=== PATIENT | female | born 1970 | race Caucasian/White ===

== ENCOUNTER → 2017-12-31 | Outpatient (CLI) | payer OTHER ==
[~2017-12-31] MED LIST: MACROBID100 M1 PO; MULTIPLE VITAMI1 TAB PO; NORETHINDRONE AC5 MG PO; PERCOCET 325 MG1 TA5 PO; ZOFRAN ODT4 MG SL
== END | disposition home or self-care (01) ==
LOC: RAD 13:34
DX: R05 Cough (principal); R06.02 Shortness of breath; R09.89 Other specified symptoms and signs involving the circulatory and respiratory systems

== ENCOUNTER 2018-08-01 18:16 | Emergency (ER) | payer OTHER ==
[~2018-08-01] VITALS: Ht 165.1 cm; Wt 72.6 kg
[2018-08-01 18:59] LABS: BILIRUBIN NEGATIVE (NEGATIVE); BLOOD TRACE-INTACT (NEGATIVE); CLARITY CLEAR (CLEAR); COLOR YELLOW (YELLOW); GLUCOSE NEGATIVE (NEGATIVE); KETONE NEGATIVE (NEGATIVE); LEUKO ESTERASE NEGATIVE (NEGATIVE); NITRITE NEGATIVE (NEGATIVE); UROBILINOGEN 0.2 E.U./dl (0.2-1.0)
[2018-08-01 19:07] LABS: BASO # 0.1 10*3/uL (0.0-0.1); BASO % 1.4 % (0.0-1.0); EOS # 0.1 10*3/uL (0.0-0.4); EOS % 1.4 % (1.0-4.0); HEMATOCRIT 41.4 % (37.0-47.0); HEMOGLOBIN 14.4 g/dl (12.0-16.0); LYMPH # 2.2 10*3/uL (1.3-4.4); LYMPH % 43.2 % (27.0-41.0); MEAN CELL VOLUME 86.1 fl (81.0-99.0); MEAN CORPUSCULAR HGB 29.9 pg (27.0-31.0); MEAN CORPUSCULAR HGB CONC 34.8 g/dl (33.0-37.0); MEAN PLATELET VOLUME 10.5 fl (9.6-12.3); MONO # 0.4 10*3/uL (0.1-1.0); MONO % 7.9 % (3.0-9.0); NEUT # 2.3 10*3/uL (2.3-7.9); NEUT % 45.9 % (47.0-73.0); PLATELET COUNT AUTOMATED 249 10*3/uL (130-400); RED BLOOD COUNT 4.81 10*6/uL (4.10-5.10); RED CELL DISTRI WIDTH 12.1 % (0-14.5); WHITE BLOOD COUNT 5.1 10*3/uL (4.8-10.8)
[2018-08-01 19:18] LABS: BACTERIA 1+; RBC 16-20 rbc/hpf (0-2)
[2018-08-01 19:24] LABS: ALBUMIN 3.6 gm/dl (3.1-4.5); ALKALINE PHOSPHATASE 50 U/L (45-117); BUN 21 mg/dl (7-24); CHLORIDE 108 mmol/L (98-107); CREATININE 0.83 mg/dL (0.55-1.02); POTASSIUM 4.1 mmol/L (3.5-5.1); SGOT/AST 16 IU/L (3-35); SGPT/ALT 22 U/L (12-78); SODIUM 143 mmol/L (136-145)
== END 2018-08-01 20:01 | disposition home or self-care (01) ==
LOC: ED 18:16
PROVIDERS: Nurse Practitioner Family
DX: N94.6 Dysmenorrhea, unspecified (principal); Z79.899 Other long term (current) drug therapy; Z79.2 Long term (current) use of antibiotics

== ENCOUNTER → 2018-08-05 | Outpatient (CLI) | payer OTHER | END | disposition home or self-care (01) | LOC: US 16:00 | DX: R10.31 Right lower quadrant pain (principal); R10.2 Pelvic and perineal pain ==

== ENCOUNTER → 2019-10-10 | Outpatient (CLI) | payer OTHER | END | disposition home or self-care (01) | LOC: MAMMO 17:08 | DX: Z12.31 Encounter for screening mammogram for malignant neoplasm of breast (principal); Z01.419 Encounter for gynecological examination (general) (routine) without abnormal findings ==

== ENCOUNTER → 2021-09-30 | Outpatient (CLI) | payer OTHER ==
[2021-09-30 09:35] LABS: HEMATOCRIT 44.3 % (37.0-47.0); MEAN CELL VOLUME 84.4 fl (81.0-99.0); MEAN CORPUSCULAR HGB 27.2 pg (27.0-31.0); MEAN CORPUSCULAR HGB CONC 32.3 g/dl (33.0-37.0); MEAN PLATELET VOLUME 9.9 fl (9.6-12.3); RED BLOOD COUNT 5.25 10*6/uL (4.10-5.10); RED CELL DISTRI WIDTH 12.6 % (0-14.5); WHITE BLOOD COUNT 4.9 10*3/uL (4.8-10.8)
[2021-09-30 09:54] LABS: ALBUMIN 3.6 gm/dl (3.1-4.5); CHLORIDE 110 mmol/L (98-107); CHOLESTEROL 175 mg/dL (<200); POTASSIUM 4.6 mmol/L (3.5-5.1); SGOT/AST 18 IU/L (3-35); SGPT/ALT 33 U/L (12-78); SODIUM 143 mmol/L (136-145); TOTAL PROTEIN 7.3 gm/dL (6.4-8.2); TRIGLYCERIDES 109 mg/dl (<150)
[2021-09-30 10:00] LABS: ALKALINE PHOSPHATASE 82 U/L (45-117); BUN 17 mg/dl (7-24); FREE T4 0.82 ng/dl (0.76-1.46); LDL CHOLESTEROL 86 mg/dL (9-159)
[2021-09-30 10:39] LABS: VITAMIN D, 25-HYDROXY 21.8 ng/mL (30-100)
== END | disposition home or self-care (01) ==
LOC: LAB 09:18
PROVIDERS: ATTEND Family Medicine
DX: Z00.00 Encounter for general adult medical examination without abnormal findings (principal); E55.9 Vitamin D deficiency, unspecified; E74.00 Glycogen storage disease, unspecified

== ENCOUNTER → 2022-04-01 | Outpatient (CLI) | payer OTHER | END | disposition home or self-care (01) | LOC: LAB 10:07 | PROVIDERS: ATTEND Nurse Practitioner Women's Health | DX: R53.83 Other fatigue (principal) ==

== ENCOUNTER → 2022-04-23 | Outpatient (CLI) | payer OTHER | END | disposition home or self-care (01) | LOC: MAMMO 04-15 09:30 | PROVIDERS: ATTEND Nurse Practitioner Women's Health | DX: Z12.31 Encounter for screening mammogram for malignant neoplasm of breast (principal); N64.89 Other specified disorders of breast ==

== ENCOUNTER → 2022-09-30 | Outpatient (CLI) | payer OTHER ==
[2022-09-30 11:17] LABS: HEMATOCRIT 45.3 % (37.0-47.0); MEAN CELL VOLUME 82.4 fl (81.0-99.0); MEAN CORPUSCULAR HGB 27.6 pg (27.0-31.0); MEAN CORPUSCULAR HGB CONC 33.6 g/dl (33.0-37.0); MEAN PLATELET VOLUME 10.3 fl (9.6-12.3); RED BLOOD COUNT 5.5 10*6/uL (4.10-5.10); RED CELL DISTRI WIDTH 12.4 % (0-14.5); WHITE BLOOD COUNT 5.8 10*3/uL (4.8-10.8)
[2022-09-30 11:46] LABS: ALKALINE PHOSPHATASE 72 U/L (46-116); BUN 16 mg/dl (9-23); CHLORIDE 106 mmol/L (98-107); CHOLESTEROL 161 mg/dL (<200); CREATININE 0.86 mg/dL (0.55-1.02); FREE T4 1.09 ng/dl (0.89-1.76); LDL CHOLESTEROL 60 mg/dL (9-159); POTASSIUM 4.4 mmol/L (3.4-5.1); SGPT/ALT 34 U/L (10-49); THYROID STIM HORMONE (HS) 2.004 uIU/ml (0.550-4.780); TRIGLYCERIDES 234 mg/dl (<150)
[2022-09-30 11:59] LABS: VITAMIN D, 25-HYDROXY 32.7 ng/mL (30-100)
== END | disposition home or self-care (01) ==
LOC: LAB 09-29 12:53
PROVIDERS: ATTEND Family Medicine
DX: Z00.00 Encounter for general adult medical examination without abnormal findings (principal); M16.12 Unilateral primary osteoarthritis, left hip; L98.9 Disorder of the skin and subcutaneous tissue, unspecified; M25.50 Pain in unspecified joint; E55.9 Vitamin D deficiency, unspecified; R63.5 Abnormal weight gain

== ENCOUNTER → 2022-12-15 | Outpatient (CLI) | payer OTHER | END | disposition home or self-care (01) | LOC: LAB 03:00 | PROVIDERS: ATTEND Family Medicine | DX: K52.9 Noninfective gastroenteritis and colitis, unspecified (principal) ==

== ENCOUNTER → 2023-03-26 | Outpatient (CLI) | payer OTHER ==
[2023-03-26 10:08] LABS: HEMATOCRIT 46.3 % (37.0-47.0); MEAN CELL VOLUME 83.6 fl (81.0-99.0); MEAN CORPUSCULAR HGB CONC 33.5 g/dl (33.0-37.0); MEAN PLATELET VOLUME 10.7 fl (9.6-12.3); RED BLOOD COUNT 5.54 10*6/uL (4.10-5.10); RED CELL DISTRI WIDTH 12.8 % (0-14.5); WHITE BLOOD COUNT 5.2 10*3/uL (4.8-10.8)
[2023-03-26 10:54] LABS: VITAMIN D, 25-HYDROXY 37.7 ng/mL (30-100)
[2023-03-26 10:55] LABS: ALKALINE PHOSPHATASE 73 U/L (46-116); BUN 14 mg/dl (9-23); CHLORIDE 109 mmol/L (98-107); CHOLESTEROL 165 mg/dL (<200); LDL CHOLESTEROL 77 mg/dL (9-159); POTASSIUM 4.1 mmol/L (3.4-5.1); SGPT/ALT 47 U/L (10-49); THYROID STIM HORMONE (HS) 1.835 uIU/ml (0.550-4.780); TOTAL PROTEIN 7.1 gm/dL (6.0-8.0); TRIGLYCERIDES 129 mg/dl (<150)
== END | disposition home or self-care (01) ==
LOC: LAB 09:51
PROVIDERS: ATTEND Family Medicine
DX: Z00.00 Encounter for general adult medical examination without abnormal findings (principal); M16.0 Bilateral primary osteoarthritis of hip; E78.00 Pure hypercholesterolemia, unspecified; E55.9 Vitamin D deficiency, unspecified; R53.83 Other fatigue; R42 Dizziness and giddiness

== ENCOUNTER → 2023-12-30 | Outpatient (CLI) | payer OTHER ==
[2023-12-30 09:02] LABS: BASO # 0.1 10*3/uL (0.0-0.1); BASO % 1.2 % (0.0-1.0); EOS # 0.2 10*3/uL (0.0-0.4); EOS % 3.6 % (1.0-4.0); HEMATOCRIT 45.2 % (37.0-47.0); LYMPH # 2.1 10*3/uL (1.3-4.4); LYMPH % 50.5 % (27.0-41.0); MEAN CELL VOLUME 85.6 fl (81.0-99.0); MEAN CORPUSCULAR HGB 27.8 pg (27.0-31.0); MEAN CORPUSCULAR HGB CONC 32.5 g/dl (33.0-37.0); MEAN PLATELET VOLUME 10.6 fl (9.6-12.3); MONO # 0.4 10*3/uL (0.1-1.0); MONO % 8.9 % (3.0-9.0); NEUT # 1.5 10*3/uL (2.3-7.9); NEUT % 35.3 % (47.0-73.0); PLATELET COUNT AUTOMATED 263 10*3/uL (130-400); RED BLOOD COUNT 5.28 10*6/uL (4.10-5.10); RED CELL DISTRI WIDTH 12.3 % (0-14.5); WHITE BLOOD COUNT 4.2 10*3/uL (4.8-10.8)
== END | disposition home or self-care (01) ==
LOC: LAB 02:11 → MAMMO 07:30 → US 08:30 → LAB 08:30
PROVIDERS: ATTEND Nurse Practitioner Women's Health
DX: R14.0 Abdominal distension (gaseous) (principal); N94.10 Unspecified dyspareunia

== ENCOUNTER → 2024-01-11 | Outpatient (CLI) | payer OTHER | END | disposition home or self-care (01) | LOC: MAMMO 01:50 | PROVIDERS: ATTEND Nurse Practitioner Women's Health | DX: Z12.31 Encounter for screening mammogram for malignant neoplasm of breast (principal); R92.30 Dense breasts, unspecified ==

== ENCOUNTER → 2024-03-06 | Outpatient (CLI) | payer OTHER ==
[2024-03-06 11:08] LABS: ALKALINE PHOSPHATASE 77 U/L (46-116); BUN 12 mg/dl (9-23); CHLORIDE 107 mmol/L (98-107); POTASSIUM 4.2 mmol/L (3.4-5.1); SGPT/ALT 40 U/L (5-49); TOTAL PROTEIN 6.8 gm/dL (6.0-8.0)
== END | disposition home or self-care (01) ==
LOC: LAB 10:10
PROVIDERS: ATTEND Orthopaedic Surgery
DX: M25.559 Pain in unspecified hip (principal); R53.83 Other fatigue

== ENCOUNTER 2024-06-16 19:05 | Emergency (ER) | payer OTHER ==
[~2024-06-16] VITALS: Ht 165.1 cm; Wt 86.2 kg
[2024-06-16] MEDS ORDERED: MELOXICAM7.5 MG PO (19:29)
[2024-06-16] MEDS ORDERED: Ketorolac Tromethamine 15 MG/ML VIAL IV ONE (19:45)
[2024-06-16] MEDS ORDERED: SODIUM CHLORIDE 0.9% 1,000 ML IV ONE (19:45)
[2024-06-16] MEDS ORDERED: Ondansetron Hydrochloride 4 MG/2 ML VIAL IV ONE (19:45)
[2024-06-16 19:57] LABS: BASO # 0.1 10*3/uL (0.0-0.1); BASO % 1.1 % (0.0-1.0); EOS # 0.2 10*3/uL (0.0-0.4); EOS % 2.9 % (1.0-4.0); HEMATOCRIT 42.5 % (37.0-47.0); LYMPH # 2.6 10*3/uL (1.3-4.4); LYMPH % 39.8 % (27.0-41.0); MEAN CELL VOLUME 84.3 fl (81.0-99.0); MEAN CORPUSCULAR HGB 28.6 pg (27.0-31.0); MEAN CORPUSCULAR HGB CONC 33.9 g/dl (33.0-37.0); MEAN PLATELET VOLUME 10.5 fl (9.6-12.3); MONO # 0.6 10*3/uL (0.1-1.0); MONO % 9.6 % (3.0-9.0); NEUT # 3.1 10*3/uL (2.3-7.9); NEUT % 46.1 % (47.0-73.0); PLATELET COUNT AUTOMATED 237 10*3/uL (130-400); RED BLOOD COUNT 5.04 10*6/uL (4.10-5.10); RED CELL DISTRI WIDTH 12.2 % (0-14.5); WHITE BLOOD COUNT 6.6 10*3/uL (4.8-10.8)
[2024-06-16 20:19] LABS: BUN 15 mg/dl (9-23); CHLORIDE 108 mmol/L (98-107); POTASSIUM 3.8 mmol/L (3.4-5.1); SGPT/ALT 42 U/L (5-49)
[2024-06-16] MEDS ORDERED: MORPHINE Sulfate 2 MG/ML SYR IV ONE (21:10)
[2024-06-16 21:11] LABS: BILIRUBIN Negative (Negative); BLOOD Negative (Negative); CLARITY Clear (Clear); COLOR Yellow (Yellow); GLUCOSE Negative (Negative); KETONE Negative (Negative); LEUKO ESTERASE 3+ (Negative); NITRITE Negative (Negative); PH 5.5 (4.5-8.0); UROBILINOGEN 0.2 E.U./dl (0.0-1.0)
[2024-06-16 21:18] LABS: BACTERIA 1+; WBC 21-30 wbc/hpf (0-5)
[2024-06-16] MEDS ORDERED: CEPHALEXIN500 M1 PO (22:27)
[2024-06-16] MEDS ORDERED: CEPHALEXIN 500 MG CAP PO ONE (22:30)
== END 2024-06-16 23:25 | disposition home or self-care (01) ==
LOC: ED 19:05
PROVIDERS: Nurse Practitioner Family
DX: N39.0 Urinary tract infection, site not specified (principal); K21.9 Gastro-esophageal reflux disease without esophagitis; F41.9 Anxiety disorder, unspecified; Z98.51 Tubal ligation status; Z98.890 Other specified postprocedural states

== ENCOUNTER 2024-06-17 16:00 | Inpatient (IN) | payer OTHER ==
[~2024-06-17] VITALS: Ht 165.1 cm; Wt 81.6 kg
[~2024-06-17 16:00] MED LIST changes: +CEPHALEXIN500 M1 PO; +MELOXICAM7.5 MG PO
[2024-06-17 16:04] VITALS: BP 176/86
[2024-06-17] MEDS ORDERED: SODIUM CHLORIDE 0.9% 1,000 ML IV ONE ×2 (16:10→18:25)
[2024-06-17] MEDS ORDERED: Ceftriaxone Sodium 1 GM/10 ML SYR IV ONE (16:15)
[2024-06-17] MEDS ORDERED: Ondansetron Hydrochloride 4 MG/2 ML VIAL IV ONE (16:15)
[2024-06-17 16:27] LABS: BASO # 0.1 10*3/uL (0.0-0.1); BASO % 1.2 % (0.0-1.0); EOS # 0.1 10*3/uL (0.0-0.4); EOS % 0.7 % (1.0-4.0); HEMATOCRIT 46.7 % (37.0-47.0); LYMPH # 2.2 10*3/uL (1.3-4.4); LYMPH % 26.8 % (27.0-41.0); MEAN CELL VOLUME 84.3 fl (81.0-99.0); MEAN CORPUSCULAR HGB 28.7 pg (27.0-31.0); MEAN PLATELET VOLUME 10.4 fl (9.6-12.3); MONO # 0.4 10*3/uL (0.1-1.0); MONO % 4.7 % (3.0-9.0); NEUT # 5.4 10*3/uL (2.3-7.9); NEUT % 64.6 % (47.0-73.0); PLATELET COUNT AUTOMATED 259 10*3/uL (130-400); RED BLOOD COUNT 5.54 10*6/uL (4.10-5.10); WHITE BLOOD COUNT 8.4 10*3/uL (4.8-10.8)
[2024-06-17 16:47] LABS: BUN 11 mg/dl (9-23); CHLORIDE 105 mmol/L (98-107); POTASSIUM 3.9 mmol/L (3.4-5.1)
[2024-06-17] MEDS ORDERED: Metoclopramide Hydrochloride 10 MG/2 ML AMP IV ONE (17:10)
[2024-06-17] MEDS ORDERED: diphenhydrAMINE hydrochloride 50 MG/ML VIAL IV ONE (17:10)
[2024-06-17] MEDS ORDERED: ACETAMINOPHEN 325 MG TAB PO PRN (18:25)
[2024-06-17] MEDS ORDERED: Piperacillin Sodium/Tazobact 50 ML IV SCH (20:00)
[2024-06-17 22:34] VITALS: BP 147/73
[2024-06-18 01:00] VITALS: BP 140/74
[2024-06-18 07:32] LABS: BASO # 0.1 10*3/uL (0.0-0.1); BASO % 0.7 % (0.0-1.0); EOS # 0.1 10*3/uL (0.0-0.4); EOS % 0.9 % (1.0-4.0); LYMPH # 2.7 10*3/uL (1.3-4.4); LYMPH % 38.3 % (27.0-41.0); MEAN CELL VOLUME 83.3 fl (81.0-99.0); MEAN CORPUSCULAR HGB 28.1 pg (27.0-31.0); MEAN CORPUSCULAR HGB CONC 33.7 g/dl (33.0-37.0); MEAN PLATELET VOLUME 10.4 fl (9.6-12.3); MONO # 0.7 10*3/uL (0.1-1.0); MONO % 9.3 % (3.0-9.0); NEUT # 3.5 10*3/uL (2.3-7.9); NEUT % 50.1 % (47.0-73.0); PLATELET COUNT AUTOMATED 239 10*3/uL (130-400); RED BLOOD COUNT 5.16 10*6/uL (4.10-5.10); RED CELL DISTRI WIDTH 12.2 % (0-14.5)
[2024-06-18 07:48] VITALS: BP 141/79
[2024-06-18 08:00] LABS: BUN 10 mg/dl (9-23); CHLORIDE 106 mmol/L (98-107); POTASSIUM 3.5 mmol/L (3.4-5.1)
[2024-06-18] MEDS ORDERED: IOHEXOL 300 MG/ML 100 ML VIAL IV ONE (09:15)
[2024-06-18] MEDS ORDERED: IOHEXOL 300 MG/ML 100 ML VIAL ONE (09:27)
[2024-06-18] MEDS ORDERED: Meloxicam 15 MG TAB PO SCH (10:00)
[2024-06-18 13:11] VITALS: BP 145/79
[2024-06-19] MEDS ORDERED: NAPROXEN250 MG PO (02:55)
[2024-06-19] MEDS ORDERED: METHOCARBAMOL750 M1 PO (02:55)
== END 2024-06-18 16:17 | disposition home or self-care (01) | DRG 690 ==
LOC: ED 16:00 → EDHOLD 17:18
PROVIDERS: Nurse Practitioner Family; ADMIT Internal Medicine; ATTEND Internal Medicine
DX: N39.0 Urinary tract infection, site not specified (principal); R91.1 Solitary pulmonary nodule; K21.9 Gastro-esophageal reflux disease without esophagitis; F41.9 Anxiety disorder, unspecified; R31.9 Hematuria, unspecified; T36.1X5A Adverse effect of cephalosporins and other beta-lactam antibiotics, initial encounter; Y92.89 Other specified places as the place of occurrence of the external cause; Z87.01 Personal history of pneumonia (recurrent)

== ENCOUNTER 2024-06-19 01:47 | Emergency (ER) | payer OTHER ==
[~2024-06-19] VITALS: Ht 170.1 cm; Wt 90.7 kg
[2024-06-19 02:31] LABS: BILIRUBIN Negative (Negative); BLOOD Negative (Negative); CLARITY Clear (Clear); COLOR Yellow (Yellow); GLUCOSE Negative (Negative); KETONE Negative (Negative); LEUKO ESTERASE 2+ (Negative); NITRITE Negative (Negative); PH 5.5 (4.5-8.0); SPECIFIC GRAVITY 1.015 (1.001-1.030); UROBILINOGEN 0.2 E.U./dl (0.0-1.0)
[2024-06-19 02:38] LABS: BACTERIA 1+; RBC 0-2 rbc/hpf (0-2); WBC 21-30 wbc/hpf (0-5)
[2024-06-19] MEDS ORDERED: Ketorolac Tromethamine 60 MG/2 ML VIAL IM ONE (02:50)
[2024-06-19] MEDS ORDERED: METHOCARBAMOL 500 MG TAB PO ONE (02:50)
[2024-06-19] MEDS ORDERED: METHOCARBAMOL750 M1 PO (02:55)
[2024-06-19] MEDS ORDERED: NAPROXEN250 MG PO (02:55)
== END 2024-06-19 03:02 | disposition home or self-care (01) ==
LOC: ED 01:47
PROVIDERS: Internal Medicine
DX: S39.012A Strain of muscle, fascia and tendon of lower back, initial encounter (principal); M79.604 Pain in right leg; K21.9 Gastro-esophageal reflux disease without esophagitis; F41.9 Anxiety disorder, unspecified; Z98.51 Tubal ligation status; Z98.890 Other specified postprocedural states; Z79.899 Other long term (current) drug therapy; X58.XXXA Exposure to other specified factors, initial encounter; Y93.89 Activity, other specified; Y92.89 Other specified places as the place of occurrence of the external cause; Y99.8 Other external cause status

== ENCOUNTER → 2024-11-13 | Outpatient (CLI) | payer OTHER ==
[~2024-11-13] MED LIST changes: +METHOCARBAMOL750 M1 PO; +NAPROXEN250 MG PO
[2024-11-13 14:17] LABS: HEMATOCRIT 46.5 % (37.0-47.0); MEAN CELL VOLUME 84.7 fl (81.0-99.0); MEAN CORPUSCULAR HGB 27.7 pg (27.0-31.0); MEAN CORPUSCULAR HGB CONC 32.7 g/dl (33.0-37.0); MEAN PLATELET VOLUME 10.5 fl (9.6-12.3); RED BLOOD COUNT 5.49 10*6/uL (4.10-5.10); RED CELL DISTRI WIDTH 12.1 % (0-14.5); WHITE BLOOD COUNT 4.9 10*3/uL (4.8-10.8)
[2024-11-13 14:56] LABS: ALKALINE PHOSPHATASE 74 U/L (46-116); BUN 12 mg/dl (9-23); CHLORIDE 104 mmol/L (98-107); CHOLESTEROL 154 mg/dL (<200); FREE T4 1.12 ng/dl (0.89-1.76); LDL CHOLESTEROL 58 mg/dL (9-159); SGPT/ALT 36 U/L (5-49); TOTAL PROTEIN 7.5 gm/dL (6.0-8.0); TRIGLYCERIDES 148 mg/dl (<150)
== END | disposition home or self-care (01) ==
LOC: LAB 13:57
PROVIDERS: ATTEND Family Medicine
DX: R53.83 Other fatigue (principal); E55.9 Vitamin D deficiency, unspecified; J40 Bronchitis, not specified as acute or chronic; L08.9 Local infection of the skin and subcutaneous tissue, unspecified

== ENCOUNTER 2025-09-27 08:25 | Emergency (ER) | payer OTHER ==
[2025-09-27 08:46] LABS: BILIRUBIN Negative (Negative); BLOOD Negative (Negative); CLARITY Cloudy (Clear); COLOR Yellow (Yellow); KETONE Negative (Negative); LEUKO ESTERASE 3+ (Negative); NITRITE Negative (Negative); PH 5.0 (4.5-8.0); SPECIFIC GRAVITY 1.025 (1.001-1.030); UROBILINOGEN 0.2 E.U./dl (0.0-1.0)
[2025-09-27 08:53] LABS: BACTERIA 2+; EPITHELIAL CELLS 21-30; MUCOUS 1+; WBC 51-100 wbc/hpf (0-5)
[2025-09-27 09:13] LABS: BASO # 0.1 10*3/uL (0.0-0.1); BASO % 1.5 % (0.0-1.0); EOS # 0.1 10*3/uL (0.0-0.4); EOS % 2.6 % (1.0-4.0); MEAN CELL VOLUME 84.4 fl (81.0-99.0); MEAN CORPUSCULAR HGB 28.0 pg (27.0-31.0); MEAN PLATELET VOLUME 10.0 fl (9.6-12.3); MONO # 0.5 10*3/uL (0.1-1.0); MONO % 10.1 % (3.0-9.0); NEUT # 1.9 10*3/uL (2.3-7.9); NEUT % 40.4 % (47.0-73.0); NUCLEATED RED BLOOD CELL 0.0 % (0.0-0.0); NUCLEATED RED BLOOD CELL 0.0 10*3/uL (0.0-0.0); PLATELET COUNT AUTOMATED 267 10*3/uL (130-400); RED CELL DISTRI WIDTH 12.3 % (0-14.5)
[2025-09-27 09:32] LABS: BUN 14 mg/dl (9-23)
[2025-09-27] MEDS ORDERED: AMOXICILLIN500 M2 PO (09:39)
[2025-09-27] MEDS ORDERED: AMOXICILLIN 500 MG CAP PO ONE (10:00)
== END 2025-09-27 10:05 | disposition home or self-care (01) ==
LOC: ED 08:25
PROVIDERS: Student in an Organized Health Care Education/Training Program
DX: H66.91 Otitis media, unspecified, right ear (principal); N39.0 Urinary tract infection, site not specified; R10.9 Unspecified abdominal pain; Z98.890 Other specified postprocedural states